=== PATIENT | male | born 1955 | race Caucasian/White ===

== ENCOUNTER 2023-05-24 18:20 | Emergency (ER) | payer MEDICARE, OTHER ==
[2023-05-24 18:45] VITALS: TEMP 97.7
[2023-05-24] MEDS ORDERED: SODIUM CHLORIDE 0.9% 1,000 ML IV STA (19:04)
--- NOTE | 2023-05-24 19:11 | ED ---
General Adult HPI - General Source: patient, EMS Mode of arrival: EMS Limitations: no limitations <Jerad Guerrero - Last Filed: 05/24/23 20:44> - General Source: RN notes reviewed, old records reviewed - History of Present Illness -: minutes(s) Radiation: non-radiation Severity scale (1-10): 0 Consistency: now resolved Improves with: none Worsens with: none Associated Symptoms: syncope Treatments Prior to Arrival: none <Jos Schaeffer - Last Filed: 05/24/23 21:26> - General Chief complaint: Syncope Stated complaint: Syncope Time Seen by Provider: 05/24/23 18:36 - History of Present Illness Initial comments: Dictation was produced using [email or web address] dictation software. please excuse any grammatical, word or spelling errors. Chief Complaint: 67-year-old male presents after syncopal episode History of Present Illness: 67-year-old male presents emergency department after syncopal episode. Patient was at the local bar watching the local [employer] football team game. States that he had 2 days of drinking. Does not drink alcohol regularly. He did not have any meals today. He also had some pot before the [facility]. He was watching the game and all of a sudden he asked out. He has no history cardiac disease. Patient denies any chest pain. No recent chest symptoms. Denies any palpitations. Today he states he feels weak. Apparently past out and was unconscious for 1-2 minutes. He woke up right after. There was no convulsive activity noted. Patient did urinate himself. The ROS documented in this emergency department record has been reviewed and confirmed by me. Those systems with pertinent positive or negative responses have been documented in the HPI. All other systems are other negative and/or noncontributory. (Jerad Guerrero) 67 male presents today for evaluation of a syncopal event. Patient was watching the [employer] game doing some drinking [id number] days with lightheadedness and weakness although symptoms are improving here in the ER especially after hydration. Patient feels good with good for discharge home has no headache chest pain shortness breath or abdominal pain to the emergency department (Jos Schaeffer) - Related Data Allergies Allergy/AdvReac Type Severity Reaction Status Date / Time Penicillins AdvReac Rash/Hives Verified 05/24/23 18:34 Review of Systems ROS Other: All systems not noted in ROS Statement are negative. <Jerad Guerrero - Last Filed: 05/24/23 20:44> ROS Other: All systems not noted in ROS Statement are negative. <Jos Schaeffer - Last Filed: 05/24/23 21:26> ROS Statement: Those systems with pertinent positive or pertinent negative responses have been documented in the HPI. Past Medical History Past Medical History: Hypertension History of Any Multi-Drug Resistant Organisms: None Reported Past Surgical History: No Surgical Hx Reported Past Psychological History: No Psychological Hx Reported Smoking Status: Former smoker Past Alcohol Use History: Occasional Past Drug Use History: Marijuana <Jerad Guerrero - Last Filed: 05/24/23 20:44> General Exam Limitations: no limitations <Jerad Guerrero - Last Filed: 05/24/23 20:44> General appearance: alert, in no apparent distress Head exam: Present: atraumatic, normocephalic, normal inspection Eye exam: Present: normal appearance, PERRL, EOMI. Absent: scleral icterus, conjunctival injection, periorbital swelling ENT exam: Present: normal exam, mucous membranes moist Neck exam: Present: normal inspection. Absent: tenderness, meningismus, lymph adenopathy Respiratory exam: Present: normal lung sounds bilaterally. Absent: respiratory distress, wheezes, rales, rhonchi, stridor Cardiovascular Exam: Present: regular rate, normal rhythm, normal heart sounds. Absent: systolic murmur, diastolic murmur, rubs, gallop, clicks GI/Abdominal exam: Present: soft, normal bowel sounds. Absent: distended, tenderness, guarding, rebound, rigid Extremities exam: Present: normal inspection, full ROM, normal capillary refill. Absent: tenderness, pedal edema, joint swelling, calf tenderness Back exam: Present: normal inspection Neurological exam: Present: alert, oriented X3, CN II-XII intact Psychiatric exam: Present: normal affect, normal mood Skin exam: Present: warm, dry, intact, normal color. Absent: rash <Jos Schaeffer - Last Filed: 05/24/23 21:26> - General Exam Comments Initial Comments: PHYSICAL EXAM: General Impression: Alert and oriented x3, not in acute distress HEENT: Normocephalic atraumatic, extra-ocular movements intact, pupils equal and reactive to light bilaterally, mucous membranes moist. Cardiovascular: Heart regular rate and rhythm Chest: Able to complete full sentences, no retractions, no tachypnea Abdomen: abdomen soft, non-tender, non-distended, no organomegaly Musculoskeletal: Pulses present and equal in all extremities, no peripheral edema Motor: no focal deficits noted Neurological: CN II-XII grossly intact, no focal motor or sensory deficits noted Skin: Intact with no visualized rashes Psych: Normal affect and mood (Jerad Guerrero) Course Vital Signs 05/24/23 05/24/23 18:25 21:08 Temperature 97.7 F Pulse Rate 77 78 Respiratory 20 18 Rate Blood Pressure 172/90 136/77 O2 Sat by Pulse 96 94 L Oximetry EKG Findings - EKG Comments: EKG Findings:: My EKG interpretation: Ventricular rate 74, sinus rhythm,. Interval to 51, QRS 113, QTc 448. No ND prolongation, no QTC prolongation, no ST or T-wave changes noted. Known EKG for comparison Overall, this EKG is unremarkable <Jerad Guerrero - Last Filed: 05/24/23 20:44> - EKG Results: EKG: interpreted by ERMD <Jos Schaeffer - Last Filed: 05/24/23 21:26> Medical Decision Making - Lab Data Result diagrams: 05/24/23 19:18 <Jerad Guerrero - Last Filed: 05/24/23 20:44> - Lab Data Result diagrams: 05/24/23 19:18 05/24/23 20:34 - EKG Data -: EKG Interpreted by Me (EKG shows sinus 74. 251 QRS 113 QTc 448) - Radiology Data Radiology results: report reviewed (S x-rays negative for acute disease), image reviewed <Jos Schaeffer - Last Filed: 05/24/23 21:26> - Medical Decision Making Was pt. sent in by a medical professional or institution (, PA, INFORMATION ASSURANCE OFFICER, urgent care, hospital, or long term...) When possible be specific @ -[No] Did you speak to anyone other than the patient for history (EMS, parent, family, police, friend...)? What history was obtained from this source @ -[No] Did you review nursing and triage notes (agree or disagree)? Why? @ -[I reviewed and agree with nursing and triage notes] Were old charts reviewed (outside hosp., previous admission, EMS record, old EKG, old radiological studies, urgent care reports/EKG's, long term records)? Report findings @ -[No old charts were reviewed] Differential Diagnosis (chest pain, altered mental status, abdominal pain women, abdominal pain men, vaginal bleeding, musculoskeletal, weakness, fever, dyspnea, syncope, headache, dizziness, GI bleed, back pain, seizure, CVA, palpatations, mental health)? @ -Differential Syncope: Valvular disease, hypertrophic cardiomyopathy, pulmonary embolism, tamponade, tachycardia, bradycardia, MD, hypovolemia, hemorrhage, dissection, anemia, intracranial hemorrhage, seizure, hypoglycemia, carbon monoxide poisoning, this is not meant to be an all-inclusive list. EKG interpreted by me (3pts min.). @ -See above X-rays interpreted by me (1pt min.). @ -[None done] CT interpreted by me (1pt min.). @ -[None done] U/S interpreted by me (1pt. min.). @ -[None done] What testing was considered but not performed or refused? (CT, X-rays, U/S, labs)? Why? @ -[None] What meds were considered but not given or refused? Why? @ -[None] Did you discuss the management of the patient with other professionals (professionals i.e. , PA, INFORMATION ASSURANCE OFFICER, lab, RT, psych nurse, adoption social worker, catering truck driver, teacher, administrative officer, nurse case management)? Give summary @ -[No] Was smoking cessation discussed for >3mins.? @ -[No] Was critical care preformed (if so, how long)? @ -[No] Were there social determinants of health that impacted care today? How? (Homelessness, low income, unemployed, alcoholism, drug addiction, transportation, low edu. Level, literacy, decrease access to med. care, usp, rehab)? @ -[No] Was there de-escalation of care discussed even if they declined (Discuss DNR or withdrawal of care, Hospice)? DNR status @ -[No] What co-morbidities impacted this encounter? (DM, HTN, Smoking, COPD, CAD, Can cer, CVA, ARF, Chemo, Hep., AIDS, mental health diagnosis, sleep apnea, morbid obesity)? @ -[None] Was patient admitted / discharged? Hospital course, mention meds given and route, prescriptions, significant lab abnormalities, going to OR and other pertinent info. @ -67-year-old male with no history of cardiac disease presents to the ER after syncopal episode. Vital signs are stable. EKG is unremarkable. Pending laboratory evaluation. Patient care is signed out to Dr. Schaeffer at 9pm for follow-up of pending studies. Undiagnosed new problem with uncertain prognosis? @ -[No] Drug Therapy requiring intensive monitoring for toxicity (Heparin, Nitro, Insulin, Cardizem)? @ -[No] Were any procedures done? @ -[No] Diagnosis/symptom? Acute, or Chronic, or Acute on Chronic? Uncomplicated (without systemic symptoms) or Complicated (systemic symptoms)? @ -Syncope (Jerad Guerrero) 67 male to the emergency department for evaluation of a syncopal event. Patient is without cardiac disease no headache chest pain shortness breath abdominal pain. Patient feels well after hydration for discharge. Mild alcohol, mild dehydration patient can be discharged home (Jos Schaeffer) - Lab Data Lab Results 05/24/23 05/24/23 05/24/23 Range/Units 19:18 19:18 19:18 WBC 10.3 (3.8-10.6) k/uL RBC 4.93 (4.30-5.90) m/uL Hgb 15.3 (13.0-17.5) gm/dL Hct 46.5 (39.0-53.0) % MCV 94.3 (80.0-100.0) fL MCH 31.1 (25.0-35.0) pg MCHC 33.0 (31.0-37.0) g/dL RDW 12.3 (11.5-15.5) % Plt Count 227 (150-450) k/uL MPV 8.4 Neutrophils % 78 % Lymphocytes % 13 % Monocytes % 6 % Eosinophils % 1 % Basophils % 0 % Neutrophils # 8.0 H (1.3-7.7) k/uL Lymphocytes # 1.4 (1.0-4.8) k/uL Monocytes # 0.6 (0-1.0) k/uL Eosinophils # 0.1 (0-0.7) k/uL Basophils # 0.0 (0-0.2) k/uL PT 9.6 (9.0-12.0) sec INR 0.9 (<1.2) APTT 22.2 (22.0-30.0) sec Sodium (137-145) mmol/L Potassium (3.5-5.1) mmol/L Chloride (98-107) mmol/L Carbon Dioxide (22-30) mmol/L Anion Gap mmol/L BUN (9-20) mg/dL Creatinine (0.66-1.25) mg/dL Est GFR (CKD-EPI)AfAm (>60 ml/min/1.73 sqM) Est GFR (CKD-EPI)NonAf (>60 ml/min/1.73 sqM) Glucose (74-99) mg/dL Plasma Lactic Acid Rd 3.4 H* (0.7-2.0) mmol/L Calcium (8.4-10.2) mg/dL Magnesium (1.6-2.3) mg/dL Total Bilirubin (0.2-1.3) mg/dL AST (17-59) U/L ALT (4-49) U/L Alkaline Phosphatase (38-126) U/L Troponin I (0.000-0.034) ng/mL Total Protein (6.3-8.2) g/dL Albumin (3.5-5.0) g/dL Serum Alcohol mg/dL 05/24/23 05/24/23 05/24/23 Range/Units 19:18 20:34 20:34 WBC (3.8-10.6) k/uL RBC (4.30-5.90) m/uL Hgb (13.0-17.5) gm/dL Hct (39.0-53.0) % MCV (80.0-100.0) fL MCH (25.0-35.0) pg MCHC (31.0-37.0) g/dL RDW (11.5-15.5) % Plt Count (150-450) k/uL MPV Neutrophils % % Lymphocytes % % Monocytes % % Eosinophils % % Basophils % % Neutrophils # (1.3-7.7) k/uL Lymphocytes # (1.0-4.8) k/uL Monocytes # (0-1.0) k/uL Eosinophils # (0-0.7) k/uL Basophils # (0-0.2) k/uL PT (9.0-12.0) sec INR (<1.2) APTT (22.0-30.0) sec Sodium 140 (137-145) mmol/L Potassium 4.2 (3.5-5.1) mmol/L Chloride 102 (98-107) mmol/L Carbon Dioxide 26 (22-30) mmol/L Anion Gap 12 mmol/L BUN 12 (9-20) mg/dL Creatinine 0.80 (0.66-1.25) mg/dL Est GFR (CKD-EPI)AfAm >90 (>60 ml/min/1.73 sqM) Est GFR (CKD-EPI)NonAf >90 (>60 ml/min/1.73 sqM) Glucose 87 (74-99) mg/dL Plasma Lactic Acid Rd (0.7-2.0) mmol/L Calcium 8.8 (8.4-10.2) mg/dL Magnesium 2.0 (1.6-2.3) mg/dL Total Bilirubin 0.5 (0.2-1.3) mg/dL AST 25 (17-59) U/L ALT 27 (4-49) U/L Alkaline Phosphatase 85 (38-126) U/L Troponin I <0.012 (0.000-0.034) ng/mL Total Protein 7.3 (6.3-8.2) g/dL Albumin 4.4 (3.5-5.0) g/dL Serum Alcohol 24 mg/dL Disposition <Jerad Guerrero - Last Filed: 05/24/23 20:44> Is patient prescribed a controlled substance at d/c from ED?: No Time of Disposition: 21:20 <Jos Schaeffer - Last Filed: 05/24/23 21:26> Clinical Impression: Dehydration, Syncope due to orthostatic hypotension Disposition: HOME SELF-CARE Condition: Good Instructions (If sedation given, give patient instructions): Syncope (ED) Referrals: Mario Clarke DO [Primary Care Provider] - 1-2 days
--- NOTE | 2023-05-24 20:43 | XR ---
EXAMINATION TYPE: XR chest 1V DATE OF EXAM: 05/24/2023 COMPARISON: NONE HISTORY: Syncope. TECHNIQUE: Single AP portable frontal upright view of the chest is obtained. FINDINGS: There is slightly elevated left hemidiaphragm and low lung volumes. There is no focal air s pace opacity, pleural effusion, or pneumothorax seen. The cardiac silhouette size is within normal l imits. The osseous structures are intact. IMPRESSION: No acute process.
[2023-05-24 20:44] LABS: Basophils % (A) 0 %; Eosinophils # (A) 0.1 k/uL (0-0.7); Eosinophils % (A) 1 %; HCT 46.5 % (39.0-53.0); HGB 15.3 gm/dL (13.0-17.5); Lymphocytes # (A) 1.4 k/uL (1.0-4.8); Lymphocytes % (A) 13 %; MCH 31.1 pg (25.0-35.0); MCV 94.3 fL (80.0-100.0); Mean Platelet Volume 8.4; Monocytes # (A) 0.6 k/uL (0-1.0); Monocytes % (A) 6 %; Neutrophils % (A) 78 %; Platelet Count 227 k/uL (150-450); RBC 4.93 m/uL (4.30-5.90); RDW 12.3 % (11.5-15.5); WBC 10.3 k/uL (3.8-10.6)
[2023-05-24 20:58] LABS: INR 0.9 (<1.2); Partial Thromboplastin Time 22.2 sec (22.0-30.0); Prothrombin Time 9.6 sec (9.0-12.0)
[2023-05-24 20:58] LABS: ALT 27 U/L (4-49); AST 25 U/L (17-59); African American GFR (CKD) >90 (>60 ml/min/1.73 sqM); Albumin 4.4 g/dL (3.5-5.0); Alkaline Phosphatase 85 U/L (38-126); Anion Gap 12 mmol/L; Blood Urea Nitrogen 12 mg/dL (9-20); Calcium 8.8 mg/dL (8.4-10.2); Carbon Dioxide 26 mmol/L (22-30); Chloride 102 mmol/L (98-107); Glucose 87 mg/dL (74-99); Non-African American GFR(CKD) >90 (>60 ml/min/1.73 sqM); Potassium 4.2 mmol/L (3.5-5.1); Sodium 140 mmol/L (137-145); Total Bilirubin 0.5 mg/dL (0.2-1.3); Total Protein 7.3 g/dL (6.3-8.2)
[2023-05-24 21:20] VITALS: RESP 18
[2023-05-24 22:20] VITALS: BP 145/80; PULSE 77
== END 2023-05-24 22:06 | disposition home or self-care (01) ==
LOC: EC 18:20
DX: E86.0 Dehydration (principal); I95.1 Orthostatic hypotension; I10 Essential (primary) hypertension; Z87.891 Personal history of nicotine dependence; F12.90 Cannabis use, unspecified, uncomplicated; Z88.0 Allergy status to penicillin
CPT/HCPCS: 36415; 71045; 80053; 80320; 83605; 83735; 84484; 85025; 85610; 85730; 93005; 96360; 96361; 99284